=== PATIENT | female | born 1975 | race Caucasian/White ===

== ENCOUNTER 2018-12-10 05:37 | Day surgery (SDC) | payer OTHER ==
[~2018-12-10] VITALS: Ht 160 cm; Wt 149.7 kg
[~2018-12-10 05:37] MED LIST: LISINOPRIL10 MG PO; PREVACID30 MG PO
[2018-12-10 05:58] LABS: BASOPHILS 0.2 % (0-2); HEMATOCRIT 40.8 % (36.0-48.0); HEMOGLOBIN 13.2 g/dL (12-16); IMMATURE GRANULOCYTES 0.4 % (0-5); LYMPHOCYTES 27.3 % (15-50); MCH 28.8 pg (26.0-34.0); MCHC 32.4 g/dL (31.0-37.0); MCV 88.9 fL (80.0-100.0); MEAN PLATELET VOLUME 10.2 fL (7.4-10.4); MONOCYTES 8.4 % (2-11); NEUTROPHILS 60.7 % (40-80); PLATELET COUNT 275 10x3/uL (130-400); RBC 4.59 10x6/uL (4.00-5.40); RDW 13.1 % (11.5-14.5); WBC 5.4 10x3/uL (4.8-10.8)
[2018-12-10 06:39] LABS: CALC OSMOLALITY 283 mosm/kg (275-300); CALCIUM 8.9 mg/dL (8.5-10.1); CARBON DIOXIDE 26.7 mmol/L (21.0-32.0); CHLORIDE - SERUM 107 mmol/L (98-107); CREATININE - SERUM 0.6 mg/dL (0.6-1.3); GLUCOSE 92 mg/dL (74-106); POTASSIUM - SERUM 4.1 mmol/L (3.5-5.1); SODIUM 142 mmol/L (136-145); UREA NITROGEN 14 mg/dL (7-18); eGFR NON AFRICAN AMERICAN > 90 mL/min (90-120)
[2018-12-10 06:46] VITALS: BP 152/88; Ht 160 cm; Wt 149.7 kg
[2018-12-10] MEDS ORDERED: HYDROCODON-ACE1 EA10 PO (10:07)
--- NOTE | 2018-12-10 13:49 | OP ---
PATIENT NAME: PALMER CULP MEDICAL RECORD: [id number] :79 LOCATION:[facility] ADMISSION DATE: SURGEON: HERNAN SU MD DATE OF OPERATION: 12/10/2018 PREOPERATIVE DIAGNOSES: 1. Gallstones. 2. Morbid obesity with a body mass index of 58. 3. Hypertension. 4. Gastroesophageal reflux disease. POSTOPERATIVE DIAGNOSES: 1. Gallstones. 2. Morbid obesity with a body mass index of 58. 3. Hypertension. 4. Gastroesophageal reflux disease. PROCEDURE: Laparoscopic cholecystectomy. SURGEON: Hernan Su MD REPORT OF PROCEDURE: The patient's abdomen was prepped and draped in sterile fashion. A cutdown was made in the midline just above the umbilicus. Electrocautery was used to dissect through the subcutaneous tissues. Due to her large size, I was not able to place 0 Vicryls on the fascia, so we ended up placing a Veress needle in the left upper quadrant and inserting an 11-mm Visiport trocar. Once we were inside, I could see the Veress needle and there was no sign of any injury to bowel or surrounding structures. The Veress needle was then removed. A 5-mm trocar was placed in the epigastrium and two more 5-mm trocars were placed in the right subcostal region. The gallbladder was grasped and elevated. There was a lot of fatty tissue surrounding the gallbladder, which was teased down carefully with blunt dissection. We eventually dissected out the cystic artery and cystic duct and these structures were clipped proximally and distally and ligated in standard fashion. The gallbladder was then taken off the liver bed using electrocautery and placed into an Endo Catch bag. Any bleeding from the liver bed was then treated with electrocautery. At this point, the ports and insufflation were then removed and the gallbladder was taken out through the umbilicus. An attempt was made to try and close up the fascia, but it was utterly impossible. The opening was so small, I could barely get my fingertip through it anyways, so we just elected to leave it alone. At this point, the patient's wounds were irrigated out with normal saline and infused with 10 mL of 0.25% Marcaine with epinephrine. The skin incisions were all closed with subcutaneous 5-0 Monocryl and dressed appropriately. COMPLICATIONS: None. CONDITION: Stable. ANESTHESIA: General endotracheal and local. BLOOD LOSS: Minimal. TRANSINT:[id number] Voice Confirmation ID: [id number] DOCUMENT ID: [id number] OPERATIVE REPORT [id number] PALMER CULP CHRISTIAN MD at 1349 CC: MICHELLE MANTILLA MD [id number] DICTATION DATE: 12/10/18 1010 PROJECT MANAGEMENT PROFESSIONAL: 12/10/18 101[id number] [place] [address]
--- NOTE | 2018-12-10 14:59 | NUR ---
1206 IV DC'D. CATHETER TIP INTACT. NO BLEEDING AT SITE. BANDAID APPLIED. 1215 DISCHARGE INSTRUCTIONS GIVEN TO PT AND HER FAMILY. NO QUESTIONS. PT VOICES UNDERSTANDING OF DISCHARGE INSTRUCTIONS AND STATES SHE IS READY TO GO HOME.
== END 2018-12-10 12:22 | disposition home or self-care (01) ==
LOC: D.OPS 05:37
PROVIDERS: ATTEND Surgery
DX: K80.80 Other cholelithiasis without obstruction (principal); I10 Essential (primary) hypertension; K21.9 Gastro-esophageal reflux disease without esophagitis; E66.01 Morbid (severe) obesity due to excess calories